=== PATIENT | male | born 1960 | race African-American/Black ===

== ENCOUNTER 2018-07-22 14:43 | Emergency (ER) | payer OTHER ==
[~2018-07-22] VITALS: Ht 170.2 cm; Wt 77.1 kg
[2018-07-22 14:52] VITALS: BP 156/89
== END 2018-07-22 16:21 | disposition home or self-care (01) ==
LOC: ER 14:54
DX: S60.453A Superficial foreign body of left middle finger, initial encounter (principal); F17.210 Nicotine dependence, cigarettes, uncomplicated; X58.XXXA Exposure to other specified factors, initial encounter; Y93.89 Activity, other specified; Y99.8 Other external cause status; Y92.89 Other specified places as the place of occurrence of the external cause
CPT/HCPCS: 73140